=== PATIENT | male | born 1980 | race Caucasian/White ===

== ENCOUNTER 2024-10-21 02:06 | Emergency (ER) | payer MEDICAID, SELFPAY ==
[~2024-10-21] VITALS: Ht 177.8 cm; Wt 114.0 kg
[2024-10-21 03:07] VITALS: BP 153/96; TEMP 97.5
[2024-10-21] MEDS: LIDOCAINE VISCOUS 2% 15ML UD PO ONE (03:25)
[2024-10-21] MEDS: MAALOX PLUS or MAALOX 30 ML PO ONE ×2 (03:25→06:05)
[2024-10-21] MEDS: DONNATAL 5ml ORAL Elix (BELLADONNA ALK-PHENOBARB) PO ONE ×2 (03:25→06:05)
[2024-10-21 03:28] VITALS: PULSE 52; RESP 19; O2SAT 99
[2024-10-21 04:17] LABS: Hematocrit 43.0 % (41.0-53.0); Hemoglobin 15.0 g/dL (13.5-17.5); Mean Corpuscular Hemoglobin 32.2 pg (28.0-32.0); Mean Corpuscular Volume 91.9 fL (80.0-100.0); Nucleated Red Blood Cells % 0.0 %
[2024-10-21 04:22] LABS: Alanine Aminotransferase 28 U/L (7-40); Alkaline Phosphatase 93 U/L (46-116); Anion Gap 9 (5-15); BUN/Creatinine Ratio 8.7 (10.0-20.0); Bilirubin, Total 0.4 mg/dL (0.2-1.0); Blood Urea Nitrogen 9 mg/dL (9-23); Calcium 9.5 mg/dL (8.7-10.4); Lipase 36 U/L (12-53); Potassium 4.1 mmol/L (3.5-5.1); Sodium 137 mmol/L (136-145); Total Protein 7.2 g/dL (5.7-8.2)
[2024-10-21 04:31] LABS: Albumin 4.9 g/dL (3.2-4.8); Carbon Dioxide 31 mmol/L (20-31); Chloride 97 mmol/L (98-107); Glucose 195 mg/dL (74-106)
--- NOTE | 2024-10-21 04:51 | ED.PDOC ---
GI ASSESSMENT HPI Comments 44-YEAR-OLD MALE PRESENTS TO THE ED WITH CC OF EPIGASTRIC PAIN SINCE 1300 WITH 7/10 ON PAIN SCALE BURNING AND SHARP MID EPIGASTRIC NONRADIATING TYPE PAIN. PATIENT DOES REPORT SOME NAUSEA BUT NO VOMITING. REPORTS NO DIARRHEA. HE DENIES CHEST PAIN, DIFFICULTY BREATHING, SHORTNESS OF BREATH, FEVER, CHILLS, RECENT TRAVEL OR KNOWN ILL CONTACTS. Chief Complaint: Abdominal Pain Time Seen by MD: 02:37 Primary Care Provider: PT UNSURE Reviewed Notes: Nurses Notes, Medications, Allergies Allergies: Coded Allergies: NO KNOWN ALLERGIES (Unverified , 03/26/19) Information Source: Patient Mode of Arrival: Ambulatory Past Medical History PAST MEDICAL HISTORY: Anxiety, Seizures Surgical History: Denies all surgeries Family History Family History: Reviewed,noncontributory to illness, No family hx of Cancer, No family hx of DM, No family hx of Heart sendy, No family hx of HTN, No family hx ofKidney sendy, No family hx of Liver sendy, No family hx of Lung sendy, No family hx of Stroke Social History Smoker: Non-Smoker Alcohol: Denies ETOH Use Drugs: Denies Drug Use Lives In: Home All Other Systems: Reviewed and Negative (SEE HPI) Physical Exam General Appearance: No Apparent Distress, Normal HEENT: Pharynx Normal Neck: Full Range of Motion, Non-Tender Respiratory: Lungs Clear, No Respiratory Distress, Normal Breath Sounds Cardiovascular: No Edema, No JVD, No Murmur, No Gallop, Normal Peripheral Pulses, Regular Rate/Rhythm Breast Exam: Deferred Gastrointestinal: Epigastric (MODERATE TENDERNESS ON PALPATION ), No Organomegaly, No Pulsatile Mass, Normal Bowel Sounds, Soft Genitalia: Deferred Pelvic: Deferred Rectal: Deferred Extremities: Normal range of motion, No pedal edema Musculoskeletal : Apperance: Normal Neurologic: Alert, No Motor Deficits, Normal Affect, Normal Mood, No Sensory Deficits Cerebellar Function: Normal Reflexes: NOT DONE Skin: Dry, Normal Color, Warm Lymphatic: No Adenopathy Was a procedure done? Was a procedure done?: No GI differential Dx Differential Diagnosis: Bowel Obstruction, Cholangitis, Cholecystitis, Gastritis/PUD, Gastroenteritis, Inflammatory BD, Pancreatitis, Urolithiasis, Electrolyte Imbalance, Food Poisoning, Bacterial, Parasitic, Viral X-Ray, Labs, Meds, VS Vital Signs Date Time Temp Pulse Resp B/P (MAP) Pulse Ox O2 Delivery O2 Flow Rate FiO2 8/23/25 03:28 52 19 99 Room Air 10/21/24 03:07 97.5 52 19 153/96 (115) 99 97.5 10/21/24 02:08 97.5 58 20 167/67 100 97.5 Lab Test 10/21/24 03:41 Range/Units White Blood Count 9.6 4.4-10.8 10^3/uL Red Blood Count 4.67 4.5-5.90 10^6/uL Hemoglobin 15.0 13.5-17.5 g/dL Hematocrit 43.0 41.0-53.0 % Mean Corpuscular Volume 91.9 80.0-100.0 fL Mean Corpuscular Hemoglobin 32.2 H 28.0-32.0 pg Mean Corpuscular Hemoglobin Concent 35.0 32.0-36.0 g/dL Red Cell Distribution Width 13.1 11.8-14.3 % Platelet Count 251 140-450 10^3/uL Mean Platelet Volume 7.9 6.9-10.8 fL Neutrophils (%) (Auto) 79.3 37.0-80.0 % Lymphocytes (%) (Auto) 15.3 10.0-50.0 % Monocytes (%) (Auto) 4.1 0.0-12.0 % Eosinophils (%) (Auto) 0.9 0.0-7.0 % Basophils (%) (Auto) 0.4 0.0-2.0 % Neutrophils # (Auto) 7.6 1.6-8.6 10 ^3/uL Lymphocytes # (Auto) 1.5 0.4-5.4 10 ^3/uL Monocytes # (Auto) 0.4 0-1.3 10 ^3/uL Eosinophils # (Auto) 0.1 0-0.8 10 ^3/uL Basophils # (Auto) 0 0-0.2 10 ^3/uL Nucleated Red Blood Cells 0.0 % Sodium Level 137 136-145 mmol/L Potassium Level 4.1 3.5-5.1 mmol/L Chloride Level 97 L 98-107 mmol/L Carbon Dioxide Level 31 20-31 mmol/L Anion Gap 9 5-15 Blood Urea Nitrogen 9 9-23 mg/dL Creatinine 1.03 0.700-1.30 mg/dL Glomerular Filtration Rate Calc 91 >90 mL/min BUN/Creatinine Ratio 8.7 L 10.0-20.0 Serum Glucose 195 H 74-106 mg/dL Calcium Level 9.5 8.7-10.4 mg/dL Total Bilirubin 0.4 0.2-1.0 mg/dL Aspartate Amino Transferase (AST) 14 13-40 U/L Alanine Aminotransferase (ALT) 28 7-40 U/L Alkaline Phosphatase 93 46-116 U/L Total Protein 7.2 5.7-8.2 g/dL Albumin 4.9 H 3.2-4.8 g/dL Lipase 36 12-53 U/L Current Medications Medications (Trade) Dose Ordered Sig/Janet Route Start Time Stop Time Status Last Admin Al Hydrox/Mg Hydrox/Simethicone (Maalox Plus) 30 ml ONCE ONCE PO 10/21/24 02:45 10/21/24 02:46 DC 10/21/24 03:25 Belladonna Alkaloids/ Phenobarbital ( Elixir) 5 ml ONCE ONCE PO 10/21/24 02:45 10/21/24 02:46 DC 10/21/24 03:25 Lidocaine HCl (Xylocaine 2% Viscous) 10 ml ONCE ONCE PO 10/21/24 02:45 10/21/24 02:46 DC 10/21/24 03:25 Al Hydrox/Mg Hydrox/Simethicone (Maalox Plus) 30 ml ONCE ONCE PO 10/21/24 06:00 10/21/24 06:01 DC 10/21/24 06:05 Belladonna Alkaloids/ Phenobarbital ( Elixir) 5 ml ONCE ONCE PO 10/21/24 06:00 10/21/24 06:01 DC 10/21/24 06:05 X-Ray, Labs, Meds, VS Comment IMPRESSION: 1. No acute abdominal or pelvic findings. Patient was given a GI cocktail he noted improvement in pain for about 2 minutes then noted pain returned 7/[address] abdomen and pelvis and lab work was ordered. Time of 1ST Reevaluation: 03:00 Time of 2ND Reevaluation: 04:51 Reevaluation 2ND: Unchanged Patient Education/Counseling: Diagnosis, Treatment, Prognosis, Need For Follow Up Family Education/Counseling: Diagnosis, Treatment, Prognosis, Need For Follow Up SEPSIS Sepsis Screen Date sepsis recognized/suspect: Oct 21, 2024 Time Sepsis recognized/suspect: 0213 Recent Procedure: No On Antibiotic Therapy: No Respiratory Rate >20: No Heart Rate >90: No Temp<36 C (96.8 F) or >38.3 C: No SBP <90 or MAP <65 mmHG: No New Acute Mental Status Change: No Is the patient on CPAP, BIPAP,: No Physician Orders Ct Ab Pel Wo Con-No Oral Or Iv (10/21/24 03:42) Ketorolac Injection (Toradol Injection) (10/21/24 06:30) Morphine Sulfate Injection (10/21/24 06:30) Vital Signs Date Time Temp Pulse Resp B/P (MAP) Pulse Ox O2 Delivery O2 Flow Rate FiO2 10/21/24 03:28 52 19 99 Room Air 10/21/24 03:07 97.5 52 19 153/96 (115) 99 97.5 10/21/24 02:08 97.5 58 20 167/67 100 97.5 Laboratory Tests Test 10/21/24 03:41 White Blood Count 9.6 10^3/uL (4.4-10.8) Medications Medications Dose Ordered Sig/Janet Route Start Time Stop Time Status Last Admin Dose Admin Al Hydrox/Mg Hydrox/Simethicone 30 ml ONCE ONCE PO 10/21/24 02:45 10/21/24 02:46 DC 10/21/24 03:25 Al Hydrox/Mg Hydrox/Simethicone 30 ml ONCE ONCE PO 10/21/24 06:00 10/21/24 06:01 DC 10/21/24 06:05 Belladonna Alkaloids/ Phenobarbital 5 ml ONCE ONCE PO 10/21/24 02:45 10/21/24 02:46 DC 10/21/24 03:25 Belladonna Alkaloids/ Phenobarbital 5 ml ONCE ONCE PO 10/21/24 06:00 10/21/24 06:01 DC 10/21/24 06:05 Lidocaine HCl 10 ml ONCE ONCE PO 10/21/24 02:45 10/21/24 02:46 DC 10/21/24 03:25 Departure 1 Departure Time of Disposition: 06:25 Impression: Primary Impression: GERD with esophagitis Qualified Codes: K21.00 - Gastro-esophageal reflux disease with esophagitis, without bleeding Disposition: 01 HOME / SELF CARE / HOMELESS Condition: Stable e-Prescriptions Pantoprazole Sodium Sesquihydr (Protonix) 40 Mg Tab 40 MG PO DAILY for 14 Days, #14 TAB Prov: CANDIDO HASSAN 10/21/24 Discharged With: Spouse Critical Care Note Critical Care Time?: No Stability Stability form required: CANDIDO Jones Oct 21, 2024 04:51
--- NOTE | 2024-10-21 04:51 | DVH ---
Exam: CT CT AB PEL WO CON-NO ORAL OR IV History: epigastric pain Comparison Study: None Technique: Multidetector spiral CT of the abdomen was performed from lung bases to pubic symphysis. I maging was performed without IV contrast. Axial, coronal and sagittal multiplanar reformats were obta ined from the axial data set by the technologist. Radiation Dose : 1. Abdomen/Pelvis: CTDIvol 20.87 mGy, DLP 20.87 mGy*cm. Findings: Evaluation of solid organs is limited due to lack of intravenous contrast use. Lung Bases: Unremarkable. Liver: Borderline hypoattenuation. Gallbladder and Biliary Tree: Unremarkable Pancreas: Mild atrophy. Spleen: Unremarkable Adrenal Glands: Unremarkable Kidneys/Ureters: No urinary stone or obstruction. Bladder: Grossly unremarkable for degree of distention. Pelvic Organs: Unremarkable Bowel: Normal caliber without wall thickening. Normal appendix. Vasculature: Mild atherosclerosis. Lymphadenopathy: No mesenteric, retroperitoneal or periportal lymphadenopathy. Peritoneum: No ascites, free air, or fluid collection. Abdominal Wall: No significant hernia. Musculoskeletal: No acute findings. Multilevel spondylosis. IMPRESSION: 1. No acute abdominal or pelvic findings. Radiation optimization: All CT scans at this facility use at least one of these dose optimization codie hniques: automated exposure control mA and/or kV adjustment per patient size (includes targeted exam s where dose is matched to clinical indication) or iterative reconstruction.
[2024-10-21] MEDS: MORPHINE SULFATE 4 MG/ML SYR/VIAL IV ONE ×2 (05:35→06:34)
[2024-10-21] MEDS: PANTOPRAZOLE 40 MG/10 ML VIAL INJ IV ONE (05:35)
[2024-10-21] MEDS ORDERED: PANT40TA2 PO (06:25)
[2024-10-21] MEDS: KETOROLAC TROMETH 60MG/2ML VIAL IM ONE (06:29)
== END 2024-10-21 06:58 | disposition home or self-care (01) ==
LOC: ER 02:09
DX: K21.00 Gastro-esophageal reflux disease with esophagitis, without bleeding (principal); F41.9 Anxiety disorder, unspecified; Z79.899 Other long term (current) drug therapy
CPT/HCPCS: 36415; 74176; 80053; 83690; 85025; 96372; 99285; J1885